=== PATIENT | female | born 1965 | race Caucasian/White ===

== ENCOUNTER → 2021-06-06 | Outpatient (CLI) | payer BC, OTHER ==
[~2021-06-06] MED LIST: ACETAMINOPHEN650 M5 PO; AMBIEN CR12.5 MG PO; AMIODARONE HCL400 MG PO; AMOXICILLIN 50500 MG PO; AUGMENTIN 500-1 EACH PO; AUGMENTIN 875875 MG PO; BISACODYL PO; BISACODYL SUPP10 MG PO; CARDIZEM CD120 MG PO; CARISOPRODOL 3350 MG PO; CELEXA 20 MG TA20 MG PO; DESYREL150 MG PO; DICLOFENAC SODI75 MG PO; DOK100 MG PO; ELIQUIS5 MG PO; ESTROVEN ENERG1 EACH PO; HAIR, SKIN AND1 EAC1 PO; HYDROCHLOROTHIA25 M1 PO; HYDROCODONE-APA1 TA1 PO; K-DUR 20 MEQ T20 MEQ PO; LASIX 40 MG TAB40 MG PO; LEVOTHROID25 MCG PO; LISINOPRIL40 MG PO; LOPRESSOR25 PO; LOPRESSOR50 MG PO; MAXZIDE-25 MG1 EACH PO; MEDROL DOSPAK21 TAB PO; MELATONIN PO; MILK OF MA2400 MG/10 PO; MYLANTA PO; NEURONTIN 300300 M1 PO; NORCO 10-325 T1 EACH PO; NORCO 5-325 TA1 EACH PO; OMEPRAZOLE 20 M20 M1 PO; OXYCODONE HCL15 MG PO; PERCOCET 5-3251 EACH PO; PERCOCET PO; PRINIVIL20 MG PO; PROBIOTIC1 EAC7 PO; PROTONIX40 M1 PO; PROZAC 20 MG20 MG PO; RELAFEN500 MG PO; SINGULAIR 10 MG10 MG PO; SORINE 80 MG TA80 M1 PO; SUPER THERAVIT1 EACH PO; SYNTHROID75 MC1 PO; TOPAMAX100 MG; TOPROL XL25 MG PO; ULTRAM 50MG TAB50 MG PO; VITAMIN C1000 MG PO; ZINC50 M1 PO
[2021-06-06 11:09] LABS: ABSOLUTE NEUTROPHILS 5.5 thou/uL (1.4-8.2); BASOPHILS 0.7 % (0.0-2.0); EOSINOPHILS 0.7 % (0.0-3.0); HEMATOCRIT 43.1 % (37.0-47.0); HEMOGLOBIN 14.3 gm/dL (12.0-15.0); LYMPHOCYTES 23.4 % (24.0-44.0); MCHC 33.2 g/dL (28.0-37.0); MCV 87.2 fL (80.0-100.0); MONOCYTES 8.7 % (1.0-8.0); PLATELET COUNT 269 thou/uL (150-400); POLYS 66.5 % (36.0-66.0); RBC 4.94 mil/uL (4.20-5.00); RDW 14.5 % (10.5-14.5); WBC 8.2 thou/uL (4.0-11.0)
[2021-06-06 11:18] LABS: ALBUMIN 3.7 g/dL (3.4-5.0); CALCIUM 8.8 mg/dL (8.5-10.1); CREATININE 0.9 mg/dL (0.6-1.0); TOTAL BILIRUBIN 0.6 mg/dL (0.2-1.0); TOTAL PROTEIN 7.8 g/dL (6.4-8.2)
[2021-06-06 11:39] LABS: POTASSIUM 2.9 mmol/L (3.5-5.1)
== END ==
LOC: CAT 10:12
PROVIDERS: ATTEND Internal Medicine Cardiovascular Disease
DX: I48.91 Unspecified atrial fibrillation (principal)

== ENCOUNTER 2021-06-08 06:23 | Observation (INO) | payer BC, OTHER ==
[2021-06-08] VITALS (12 sets, daily range): BP systolic 102–134; BP diastolic 55–72
[~2021-06-08] VITALS: Ht 160 cm; Wt 93.2 kg
[2021-06-08 07:38] LABS: ABSOLUTE NEUTROPHILS 4.5 thou/uL (1.4-8.2); BASOPHILS 1.2 % (0.0-2.0); EOSINOPHILS 0.9 % (0.0-3.0); HEMOGLOBIN 13.6 gm/dL (12.0-15.0); LYMPHOCYTES 21.6 % (24.0-44.0); MCH 28.5 pg (26.0-34.0); MCHC 32.4 g/dL (28.0-37.0); MONOCYTES 10.6 % (1.0-8.0); PLATELET COUNT 255 thou/uL (150-400); POLYS 65.7 % (36.0-66.0); RBC 4.77 mil/uL (4.20-5.00); RDW 14.4 % (10.5-14.5); WBC 6.8 thou/uL (4.0-11.0)
[2021-06-08] MEDS ORDERED: AMIODARONE HCL400 MG PO (07:38)
[2021-06-08 07:55] LABS: CALCIUM 9.2 mg/dL (8.5-10.1); CREATININE 0.9 mg/dL (0.6-1.0); POTASSIUM 3.5 mmol/L (3.5-5.1)
[2021-06-08 08:03] LABS: ALBUMIN 3.4 g/dL (3.4-5.0); TOTAL BILIRUBIN 0.5 mg/dL (0.2-1.0); TOTAL PROTEIN 7.2 g/dL (6.4-8.2)
[2021-06-08 08:59] LABS: INR 1.1; PROTIME 11.9 Seconds (10.5-12.1)
--- NOTE | 2021-06-08 15:26 | NUR ---
PT ARRIVED VIA BED FROM GRAIN MANAGER POST CARDIAC ABLATION. PT IS RA. PT IS CURRENTLY LYING FLAT AND ON BESREST X4 HOURS. RIGHT GROIN SITE IS C,D,&I. NO HEMATOMA NOTED. MOTHER LOPEZ IS AT BEDSIT. PT IS A&OX4. PT TOLERATING WATER AND CRACKERS AT THIS TIME. PT HAS COMPLAINT OF PAIN 5/10 IN UPPER BACK. GAVE PRN HYDROCODONE FOR PAIN. NO OTHER COMPLAINTS AT THIS TIME.
--- NOTE | 2021-06-08 16:47 | NUR ---
PT HAS COMPLAINT OF PAIN 8/10 IN UPPER BACK FROM PROCEDURE TABLE. GAVE PRN HYDROCODONE. NO PAIN RELIEF. REPOSITIONED PT, PROVIDED PT WITH PILLOWS, ICE, AND HEATED BLANKET. NO SUCCESSFUL PAIN RELIEF. SPOKE WITH DR. RUSSELL AND RECEIVED 1 TIME ORDER FOR TORADOL IV.
[2021-06-09 00:28] VITALS: BP 111/61
--- NOTE | 2021-06-09 02:33 | NUR ---
PT IS ALERT AND OREINTED X4. LUNGS ARE CLEAR ON ROOM AIR. SINUS RHYTHMM ON THE SUCKER MACHINE OPERATOR. UP TO BATHROOM WITH NURSING ASSISTANCE TO BEDSIDE COMMODE. COMPLAINS OF BACK PAIN AND PAIN MEDS GIVEN PER MAR. PT REPORTS MEDS HELPED BACK DISCOMFORT. SCDS ON BILAERAL. RIGHT GROIN SITE IS CLEAN DRY AND INTACT NO HEMATOMA NOTED. CALL LIGHT WITHIN REACH IF NEEDS ASSISTACE PER NURSING
[2021-06-09 04:16] VITALS: BP 115/67
[2021-06-09 08:00] VITALS: BP 91/69
[2021-06-09 09:39] VITALS: BP 91/69
--- NOTE | 2021-06-09 10:00 | NUR ---
PT IS DISCHARGING HOME WITH DAUGHTER DRIVING. PT DENIES ANY PAIN OR DISCOMFORT AT THIS TIME. REVIEWED DISCHARGE INSTRUCTIONS AND PAPERWORK FOR PT. PROVIDED CATHETER ABLATION DISCHARGE INSTRUCTIONS TO PT. PT VERBALIZED UNDERTANDING OF INSTRUCTIONS. REMOVED IV. PT CURRENTLY WAITING FOR DAUGHTER TO ARRIVE.
--- NOTE | 2021-06-09 10:17 | NUR ---
PT TRANSPORTED VIA WHEELCHAIR TO EXIT. LEFT WITH DAUGHTER IN PRIVATE VEHICLE. PT LEFT WITH BELONGINGS AND PAPERWORK.
--- NOTE | 2021-07-06 10:38 | P ---
[facility] [place] [address] PROCEDURE REPORT Name: TAMIKO ROUSE Room #: 201-P [facility] Stefany Guallpa#: [id number] Admission: 06/08/21 Attend Phys: Zak Crisostomo MD Discharge: 06/09/21 Date of : 65 Report #: [id number] THIS REPORT FOR: cc: Nyasia Delgado MD, Veronica A. MD Couchonnal,Zak Shah MD ~ DATE OF SERVICE: 06/08/2021 ATRIAL FIBRILLATION ABLATION PREOPERATIVE DIAGNOSIS: Atrial fibrillation. POSTOPERATIVE DIAGNOSIS: Atrial fibrillation. PROCEDURES PERFORMED: 1. Atrial fibrillation ablation, CPT code 09002. 2. Program stimulation pacing after IV drug infusion, CPT code 94668. 3. 3D mapping, CPT code 40883. 4. Intracardiac echo, CPT code 92149. ANESTHESIA: The patient underwent general anesthesia with no anesthesia related complications. DESCRIPTION OF PROCEDURE: The patient underwent informed consent. We discussed the details of the procedure including the risks, which include but not limited to bleeding, vascular damage, stroke, VA, cardiac perforation, damage to [place] conduction system, requiring permanent pacemaker. She understood these risks and is willing to proceed. The patient was brought to the EP laboratory in fasting and sedated state, prepped and draped in a standard fashion, obtained access in the right femoral vein x 3, placing an 8, 9 and 7-[place]ith[place] short sheath using the modified Seldinger technique. Under fluoroscopy, I placed a Decapolar catheter in the coronary sinus, ICE catheter into the right atrium. Using the ICE catheter, there was evidence of 2 right and 2 left pulmonary veins. The patient was then systemically heparinized. Transseptal was performed using SL1 sheath and a Cleveland needle, which was straightforward and then I exchanged for the cryosheath. I then created a 3D geometry of the left atrium using a Lasso catheter and then we started isolating the veins. Left superior pulmonary vein underwent a 4-minute freeze and the vein isolated at 88 seconds, but reconnected. I performed a second freeze of 4 minutes' duration resulting in isolation at 12 seconds. Left inferior pulmonary vein underwent a 4-minute, followed by 3-minute freeze which resulted in isolation. The right superior pulmonary vein underwent 160 second freeze and isolated at 82 seconds. I came off as attempts were cool. I then performed a second freeze of 140 seconds duration. The right inferior pulmonary vein underwent a 4-minute freeze, isolating at 43 milliseconds. There was never any phrenic nerve compromise with isolation of the right sided veins. An EP study was then performed. AV block [address] [address] PROCEDURE REPORT Name: NASIMTAMIKODONALD SHIELDS Room #: 201-P [facility] Stefany M.RTommy#: [id number] Admission: 06/08/21 Attend Phys: Zak Crisostomo MD Discharge: 06/09/21 Date of : 65 Report #: [id number] was noted at 290 milliseconds. Atrial ERP was noted at 230 milliseconds at [address] cycle length. Isoproterenol infusion was started at 2 mcg per minute. AV block was noted at 280 milliseconds and aggressive atrial burst pacing was performed down to 230 milliseconds and no AFib or atrial flutter was induced. There was no evidence of pericardial effusion. The patient received systemic protamine. All catheters and sheaths were pulled. Hemostasis obtained. There were no procedure related complications. CONCLUSION: 1. Successful AFib ablation and isolation of the pulmonary veins. 2. Normal EP study with no inducible arrhythmias on or off isoproterenol. <ELECTRONICALLY SIGNED> By: Zak Crisostomo MD 07/06/21 1038 [id number] Zak Crisostomo MD /nt
== END 2021-06-09 10:20 | disposition home or self-care (01) ==
LOC: CATH → 2N 13:00
PROVIDERS: ADMIT Internal Medicine Cardiovascular Disease; ATTEND Internal Medicine Cardiovascular Disease
DX: I48.0 Paroxysmal atrial fibrillation (principal); I50.30 Unspecified diastolic (congestive) heart failure; Z20.822 Contact with and (suspected) exposure to COVID-19; E03.9 Hypothyroidism, unspecified; E66.9 Obesity, unspecified; G47.33 Obstructive sleep apnea (adult) (pediatric); Z68.36 Body mass index [BMI] 36.0-36.9, adult; Z88.2 Allergy status to sulfonamides
CPT/HCPCS: 62110; 62900; 64020; 70005